=== PATIENT | male | born 1965 | race Caucasian/White ===

== ENCOUNTER 2018-06-06 01:49 | Emergency (ER) | payer BC ==
[~2018-06-06] VITALS: Ht 167.6 cm; Wt 52.6 kg
[2018-06-06 01:53] VITALS: Ht 167.6 cm; Wt 52.6 kg
[2018-06-06 02:23] LABS: PLATELET COUNT 288 x10^3mcL (130-400); RED CELL DISTRIBUTION WIDTH 12.4 % (11.5-14.5)
[2018-06-06 02:36] LABS: MONOCYTE 8 % (0-7); SEGMENTED NEUTROPHILS 39 % (37-75)
[2018-06-06 02:38] LABS: CHLORIDE SERUM 106 mmol/L (98-107); POTASSIUM SERUM 3.4 mmol/L (3.5-5.1); SODIUM SERUM 142 mmol/L (136-145)
[2018-06-06 02:39] LABS: CALCIUM 8.7 mg/dL (8.5-10.1); CARBON DIOXIDE 28.6 mmol/L (21-32); GFR1 > 60 mL/min; GLUCOSE SERUM 126 mg/dL (74-106)
[2018-06-06 02:42] LABS: ALBUMIN 3.9 g/dL (3.4-5.0); PLATELET MORPHOLOGY PLATELETS NORMAL; TOTAL PROTEIN, SERUM 7.3 g/dL (6.4-8.2); rbc morphology (normal/abnorm) NORMAL (NORMAL)
[2018-06-06 02:43] LABS: ALKALINE PHOSPHATASE 54 U/L (46-116); ALT/SGPT 23 U/L (16-63); AST/SGOT 21 U/L (15-37); BILIRUBIN TOTAL 0.36 mg/dL (0.20-1.00); LIPASE 478 IU/L (73-393)
[2018-06-06 03:33] LABS: UA SPECIFIC GRAVITY 1.025 (1.005-1.035); microscopic required? YES; urine erythrocyte 1+ (NEGATIVE)
[2018-06-06 04:54] VITALS: BP 116/73
== END 2018-06-06 04:54 | disposition home or self-care (01) ==
LOC: ED 01:49
PROVIDERS: Emergency Medicine
DX: K59.00 Constipation, unspecified (principal); N20.0 Calculus of kidney
CPT/HCPCS: J1885; J2405; J3010; J7030